=== PATIENT | female | born 1980 | race Caucasian/White ===

== ENCOUNTER 2025-01-30 16:20 | Emergency (ER) | payer MEDICAID, OTHER, SELFPAY | END 2025-01-30 18:09 | LOC: NAV ERS 16:20 | DX: Z04.1 Encounter for examination and observation following transport accident (principal); F17.290 Nicotine dependence, other tobacco product, uncomplicated; V89.2XXA Person injured in unspecified motor-vehicle accident, traffic, initial encounter | CPT/HCPCS: 70450; 72125 ==